=== PATIENT | female | born 2000 | race African-American/Black ===

== ENCOUNTER 2020-07-11 20:35 | Emergency (ER) | payer OTHER ==
[~2020-07-11] VITALS: Ht 157.5 cm; Wt 102.2 kg
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
[2020-07-11] MEDS ORDERED: TRAM-48 PO (21:48)
--- NOTE | 2020-07-11 21:55 | RAD ---
Exam: Right ankle 3 views INDICATION: Pain TECHNIQUE: Frontal, lateral and oblique views of the right ankle Comparisons: None FINDINGS: Bone mineralization is normal. Mild soft tissue swelling overlying the lateral malleolus. Joint spaces are well-maintained. No acute or healed fractures. IMPRESSION: Soft tissue swelling at the ankle without underlying osseous abnormality identified. Electronically signed by: Cindy Govea MD (07/11/2020 9:53 PM) [id number]
[2020-07-11 22:00] VITALS: BP 144/84
[2020-07-11] MEDS ORDERED: ACETAMINOPHEN 325 MG TABLET. PO ONE (22:00)
== END 2020-07-11 22:20 | disposition home or self-care (01) ==
LOC: ER 20:35
DX: S93.491A Sprain of other ligament of right ankle, initial encounter (principal); R60.0 Localized edema; V49.9XXA Car occupant (driver) (passenger) injured in unspecified traffic accident, initial encounter; Y93.89 Activity, other specified; Y92.413 State road as the place of occurrence of the external cause; Y99.8 Other external cause status
CPT/HCPCS: 73610; 99283

== ENCOUNTER 2021-10-11 10:15 | Emergency (ER) | payer OTHER ==
[~2021-10-11] VITALS: Ht 157.5 cm; Wt 111.7 kg
[~2021-10-11 10:15] MED LIST: TRAM-48 PO
[2021-10-11 10:19] VITALS: BP 140/72
--- NOTE | 2021-10-11 11:33 | ED.ADGEN ---
Past Medical History Past Medical History: No Pertinent History Past Surgical History: Tonsillectomy Smoking Status: Never Smoker Alcohol Use: None General Adult EDM: Chief Complaint: HAND PROBLEM HPI: HPI: Patient is a 20 year old female presents with right hand pain. 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 Is right-handed, no other injuries Review of Systems: Review of Systems: All other systems within normal limits except for as noted in the HPI Allergies: Allergies: Allergies Coded Allergies Type Severity Reaction Last Updated Verified No Known Drug Allergies 07/11/20 No Physical Exam: PE: Constitutional: Well developed, well nourished, no acute distress, non-toxic appearance. [] HENT: Normocephalic, atraumatic, bilateral external ears normal, nose normal. [] Eyes: PERRLA, conjunctiva normal, no discharge. [] Neck: No rigidity, supple, no stridor. [] Cardiovascular: Regular rate and rhythm, brisk cap refill [] Lungs & Thorax: Non labored symmetric respirations, no tachypnea or respiratory distress [] Abdomen: Soft, nondistended. Skin: Warm, dry, no erythema, no rash. Ecchymosis to lateral right hand] Back: Unremarkable Extremities: No deformities, range of motion grossly intact, no lower extremity edema. Neurovascularly intact on right hand [] Neurologic: Alert and oriented X 3, no focal deficits noted. [] Psychologic: Affect normal, judgement normal, mood normal. [] Current Patient Data: Vital Signs: Vital Signs Date Time Temp Pulse Resp B/P (MAP) Pulse Ox O2 Delivery O2 Flow Rate FiO2 10/11/21 10:19 98.4 85 16 140/72 (94) 97 Room Air 98.4 EKG: EKG: [] Heart Score: C/O Chest Pain: No Risk Factors: Risk Factors: DM, Current or recent (<one month) smoker, HTN, HLP, family history of CAD, obesity. Risk Scores: Score 0 - 3: 2.5% MACE over next 6 weeks - Discharge Home Score 4 - 6: 20.3% MACE over next 6 weeks - Admit for Clinical Observation Score 7 - 10: 72.7% MACE over next 6 weeks - Early Invasive Strategies Radiology/Procedures: Radiology/Procedures: Right hand x-ray negative [] Course & Med Decision Making: Course & Med Decision Making Pertinent Labs and Imaging studies reviewed. (See chart for details) [] Dragon Disclaimer: Dragon Disclaimer: This electronic medical record was generated, in whole or in part, using a voice recognition dictation system. Departure Departure Impression: Primary Impression: Injury of right hand Disposition: HOME / SELF CARE / HOMELESS Condition: STABLE Referrals: NO PCP (PCP) Patient Instructions: RICE - Routine Care for Injuries RANGEL TRISTAN MD Oct 11, 2021 11:33
--- NOTE | 2021-10-11 12:13 | RAD ---
EXAM: Right hand, 2 views. HISTORY: Fifth metacarpal pain. Blunt trauma. COMPARISON: None. FINDINGS: 2 views of the right hand are obtained. There is no acute fracture, dislocation or subluxat ion. There is no foreign body. IMPRESSION: No acute osseous finding. Electronically signed by: Denice Cabrera MD (10/11/2021 12:10 PM) [id number]
== END 2021-10-11 11:42 | disposition home or self-care (01) ==
LOC: ER 10:15
DX: S69.91XA Unspecified injury of right wrist, hand and finger(s), initial encounter (principal); W23.0XXA Caught, crushed, jammed, or pinched between moving objects, initial encounter; Y93.89 Activity, other specified; Y92.512 Supermarket, store or market as the place of occurrence of the external cause; Y99.0 Civilian activity done for income or pay
CPT/HCPCS: 73120; 99283

== ENCOUNTER 2021-10-17 18:29 | Emergency (ER) | payer SELFPAY ==
[~2021-10-17] VITALS: Ht 157.5 cm; Wt 113.0 kg
--- NOTE | 2021-10-17 21:20 | PHYS DOC ---
Past Medical History Past Medical History: No Pertinent History Past Surgical History: No Surgical History Smoking Status: Never Smoker Alcohol Use: None General Adult EDM: Chief Complaint: FLANK PAIN HPI: HPI: Patient is a 20-year-old female who presents to the emergency department for left flank pain that wraps around to her left upper abdomen that started today. She is reporting dysuria, urinary frequency/urgency, nausea. She denies vomiting, diarrhea, coughing, difficulty breathing, blood in her stools or vomit, fevers. Last bowel movement was yesterday. Patient has no medical history. Her vital signs are stable and she is in no acute distress. Review of Systems: Review of Systems: Constitutional: See HPI Respiratory: See HPI GI: See HPI : See HPI Musculoskeletal: See HPI Heart Score: C/O Chest Pain: N/A Risk Factors: Risk Factors: DM, Current or recent (<one month) smoker, HTN, HLP, family history of CAD, obesity. Risk Scores: Score 0 - 3: 2.5% MACE over next 6 weeks - Discharge Home Score 4 - 6: 20.3% MACE over next 6 weeks - Admit for Clinical Observation Score 7 - 10: 72.7% MACE over next 6 weeks - Early Invasive Strategies Allergies: Allergies: Allergies Coded Allergies Type Severity Reaction Last Updated Verified No Known Drug Allergies 10/17/21 No Physical Exam: PE: Constitutional: Well developed, well nourished, no acute distress, non-toxic appearance. [] HENT: Normocephalic, atraumatic, bilateral external ears normal, oropharynx moist, no oral exudates, nose normal. [] Eyes: PERRL, EOMI, conjunctiva normal, no discharge. [] Neck: Normal range of motion, no tenderness, supple, no stridor. [] Cardiovascular:Heart rate regular rhythm, no murmur [] Lungs & Thorax: Bilateral breath sounds clear to auscultation [] Abdomen: Bowel sounds normal, soft, left upper quadrant tenderness with palpation, no abdominal rigidity or guarding, no masses, no pulsatile masses. [] Skin: Warm, dry, no erythema, no rash. [] Back: No tenderness, left CVA tenderness Extremities: No tenderness, no cyanosis, no clubbing, ROM intact, no edema. [] Neurologic: Alert and oriented X 3, normal motor function, normal sensory function, no focal deficits noted. [] Psychologic: Affect normal, judgement normal, mood normal. [] Current Patient Data: Labs: Laboratory Tests Test 10/17/21 22:00 10/17/21 22:05 10/17/21 22:09 Urine Collection Type Unknown Urine Color Yellow Urine Clarity Cloudy Urine pH 6.0 Urine Specific [place] 1.020 Urine Protein Negative mg/dL Urine Glucose (UA) Negative mg/dL Urine Ketones (Stick) Negative mg/dL Urine Blood Large Urine Nitrite Negative Urine Bilirubin Negative Urine Urobilinogen Dipstick 0.2 mg/dL Urine Leukocyte Esterase Small Urine RBC 20-40 /HPF Urine WBC 5-10 /HPF Urine Squamous Epithelial Cells Mod /LPF Urine Bacteria Few /HPF Urine Mucus Marked /LPF Bedside Urine HCG, Qualitative Hcg negative White Blood Count 9.5 x10^3/uL Red Blood Count 4.73 x10^6/uL Hemoglobin 11.7 g/dL Hematocrit 34.8 % Mean Corpuscular Volume 74 fL Mean Corpuscular Hemoglobin 25 pg Mean Corpuscular Hemoglobin Concent 34 g/dL Red Cell Distribution Width 15.1 % Platelet Count 392 x10^3/uL Neutrophils (%) (Auto) 56 % Lymphocytes (%) (Auto) 34 % Monocytes (%) (Auto) 9 % Eosinophils (%) (Auto) 1 % Basophils (%) (Auto) 1 % Neutrophils # (Auto) 5.3 x10^3/uL Lymphocytes # (Auto) 3.2 x10^3/uL Monocytes # (Auto) 0.8 x10^3/uL Eosinophils # (Auto) 0.1 x10^3/uL Basophils # (Auto) 0.1 x10^3/uL Sodium Level 139 mmol/L Potassium Level 3.9 mmol/L Chloride Level 106 mmol/L Carbon Dioxide Level 24 mmol/L Anion Gap 9 Blood Urea Nitrogen 7 mg/dL Creatinine 0.9 mg/dL Estimated GFR (Cockcroft-Gault) 96.6 BUN/Creatinine Ratio 8 Glucose Level 79 mg/dL Calcium Level 8.8 mg/dL Total Bilirubin Pending Aspartate Amino Transf (AST/SGOT) Pending Alanine Aminotransferase (ALT/SGPT) Pending Alkaline Phosphatase Pending Total Protein Pending Albumin Pending Albumin/Globulin Ratio Pending Lipase Pending Current Medications Medications (Trade) Dose Ordered Sig/Kaycee Route PRN Reason Start Time Stop Time Status Last Admin Dose Admin Sodium Chloride 1,000 ml @ 1,000 mls/hr 1X ONCE IV 10/17/21 21:30 10/17/21 22:29 DC 10/17/21 22:07 Ondansetron HCl (Zofran) 4 mg 1X ONCE IVP 10/17/21 21:30 10/17/21 21:31 DC 10/17/21 22:08 Vital Signs: Vital Signs Date Time Temp Pulse Resp B/P (MAP) Pulse Ox O2 Delivery O2 Flow Rate FiO2 10/17/21 21:04 98.7 83 12 135/84 (101) 99 Room Air 98.7 EKG: EKG: [] Radiology/Procedures: Radiology/Procedures: []PROCEDURE: CT ABDOMEN PELVIS WO CONTRAST Exam: CT of abdomen and pelvis without contrast INDICATION: Flank pain TECHNIQUE: Sequential axial images through the abdomen and pelvis obtained without IV contrast. Sagittal and coronal reformatted images were reconstructed from the axial data and reviewed. Exposure: One or more of the following in the visualized dose reduction techniques were utilized for this examination: 1. Automated exposure control 2. Adjustment of the MA and/or KV according to patient size 3. Use of iterative of reconstructive technique Comparisons: None FINDINGS: Heart size is normal. No pericardial effusion. Visualized lung bases are clear. No pleural effusion. Evaluation solid organs is limited secondary to noncontrast technique. Liver, spleen, pancreas, and adrenals are unremarkable. Gallbladder is decompressed. No perinephric inflammation or hydronephrosis. No renal or ureteral calculi are identified. Bladder is partially distended and not well evaluated. Uterus is not enlarged. No abnormal adnexal mass. Large and small bowel are unremarkable. Appendix is normal. Small bowel is unremarkable. No free intra-abdominal air or fluid. No obstruction. Abdominal aorta has normal course and caliber. No enlarged abdominal lymph nodes are identified. No suspicious osseous lesions or acute fractures. IMPRESSION: No acute process identified within the abdomen or pelvis. No renal or ureteral calculi or evidence for obstructive uropathy. Electronically signed by: Max Farr MD (10/17/2021 10:50 PM) [facility] DICTATED and SIGNED BY: MAX FARR MD DATE: 10/17/21 [id number] 0 Course & Med Decision Making: Course & Med Decision Making Pertinent Labs and Imaging studies reviewed. (See chart for details) [] Patient presents to the emergency department for left flank pain that wraps around to her left upper abdomen with nausea, dysuria, urinary frequency and urgency. Patient not have any medical history. She does have a history of kidney stones. Work-up in the ER consisted of a urinalysis which showed a urinary tract infection. Blood work was unremarkable. CT scan of abdomen and pelvis showed no acute findings. Patient will be treated with an antibiotic. Patient advised to increase fluids and avoid bladder irritants. I discussed with patient all findings and diagnostic testing as well as the need to follow- up with PCP for further evaluation and treatment or return to the ER if any new or worsening symptoms. Strict return precautions were also discussed at length. Patient voiced understanding and agreement with the plan. Patient is hemodyna mically stable at the time of disposition. Dragon Disclaimer: Dragon Disclaimer: This electronic medical record was generated, in whole or in part, using a voice recognition dictation system. Departure Departure Impression: Primary Impression: Urinary tract infection Qualified Codes: N30.01 - Acute cystitis with hematuria Disposition: HOME / SELF CARE / HOMELESS Condition: GOOD Referrals: NO PCP (PCP) Patient Instructions: Urinary Tract Infection Additional Instructions: You were seen in the emergency department today for flank pain with nausea. Your urinalysis did show urinary tract infection which will be treated with an antibiotic. Please start and finish the antibiotic completely. For your burning pain you can take Pyridium. This medication may cause your urine to become orange in discoloration. Increase your fluids and avoid any bladder irritants like caffeine, sugary beverages or alcohol. You can take Tylenol and/ibuprofen for your pain. Follow-up with your primary care provider tomorrow regarding your ER visit. Please return to the emergency department if you develop intractable nausea or vomiting, high fevers refractory to treatment, abdominal pain. Scripts Phenazopyridine Hcl (PYRIDIUM) 200 Mg Tablet 1 TAB PO TID for urinary discomfort for 2 Days, #6 TAB 0 Refills Prov: LUCY SOLIS APRN 10/17/21 Cephalexin (KEFLEX) 500 Mg Capsule 1 CAP PO BID for 7 Days, #14 CAP 0 Refills Prov: LUCY SOLIS APRN 10/17/21 LUCY SOLIS APRN Oct 17, 2021 21:20
[2021-10-17] MEDS: IV NORMAL SALINE 1000ML BAG 1,000 ML IV ONE (22:07)
[2021-10-17] MEDS: ONDANSETRON PF 4 MG/2 ML VIAL. IVP ONE (22:08)
[2021-10-17 22:10] LABS: BILIRUBIN,URINE NEGATIVE (NEG); CLARITY,URINE CLOUDY; COLOR,URINE YELLOW; NITRITE,URINE NEGATIVE (NEG); PROTEIN,URINE NEGATIVE (NEG-TRACE); UROBILINOGEN,URINE 0.2 mg/dL (0.2 mg/dL)
[2021-10-17 22:17] LABS: BASO # 0.1 x10^3/uL (0.0-0.2); BASO % 1 % (0-3); EOS # 0.1 x10^3/uL (0.0-0.7); EOS % 1 % (0-3); HEMATOCRIT 34.8 % (36.0-47.0); HEMOGLOBIN 11.7 g/dL (12.0-15.5); LYMPH # 3.2 x10^3/uL (1.0-4.8); LYMPH % 34 % (24-48); MEAN CORPUSCULAR HEMOGLOBIN 25 pg (25-35); MEAN CORPUSCULAR HGB CONC 34 g/dL (31-37); MEAN CORPUSCULAR VOLUME 74 fL (79-100); MONO # 0.8 x10^3/uL (0.0-1.1); MONO % 9 % (0-9); NEUT # 5.3 x10^3/uL (1.8-7.7); NEUT % 56 % (31-73); PLATELET COUNT 392 x10^3/uL (140-400); RED BLOOD COUNT 4.73 x10^6/uL (3.50-5.40); RED CELL DISTRIBUTION WIDTH 15.1 % (11.5-14.5); WHITE BLOOD COUNT 9.5 x10^3/uL (4.0-11.0)
[2021-10-17 22:27] LABS: BACTERIA,URINE FEW /HPF (0-FEW); RBC,URINE 20-40 /HPF (0-2)
[2021-10-17 22:36] LABS: CALCIUM 8.8 mg/dL (8.5-10.1); CREATININE 0.9 mg/dL (0.6-1.0); GFR 96.6; POTASSIUM 3.9 mmol/L (3.5-5.1)
[2021-10-17 22:42] LABS: ALBUMIN 3.6 g/dL (3.4-5.0); ALBUMIN/GLOBULIN RATIO 0.9 (1.0-1.7); TOTAL BILIRUBIN 0.2 mg/dL (0.2-1.0); TOTAL PROTEIN 7.5 g/dL (6.4-8.2)
--- NOTE | 2021-10-17 22:52 | RAD ---
Exam: CT of abdomen and pelvis without contrast INDICATION: Flank pain TECHNIQUE: Sequential axial images through the abdomen and pelvis obtained without IV contrast. Sagit farhad and coronal reformatted images were reconstructed from the axial data and reviewed. Exposure: One or more of the following in the visualized dose reduction techniques were utilized for this examination: 1. Automated exposure control 2. Adjustment of the MA and/or KV according to patient size 3. Use of iterative of reconstructive technique Comparisons: None FINDINGS: Heart size is normal. No pericardial effusion. Visualized lung bases are clear. No pleural effusion. Evaluation solid organs is limited secondary to noncontrast technique. Liver, spleen, pancreas, and adrenals are unremarkable. Gallbladder is decompressed. No perinephric inflammation or hydronephrosis. No renal or ureteral calculi are identified. Bladder is partially distended and not well evaluated. Uterus is not enlarged. No abnormal adnexal ma ss. Large and small bowel are unremarkable. Appendix is normal. Small bowel is unremarkable. No free intr a-abdominal air or fluid. No obstruction. Abdominal aorta has normal course and caliber. No enlarged abdominal lymph nodes are identified. No suspicious osseous lesions or acute fractures. IMPRESSION: No acute process identified within the abdomen or pelvis. No renal or ureteral calculi or evidence fo r obstructive uropathy. Electronically signed by: Cindy Govea MD (10/17/2021 10:50 PM) [facility]
[2021-10-17] MEDS ORDERED: PHEN-318 PO (23:08)
[2021-10-17] MEDS ORDERED: CEPH500C PO (23:08)
[2021-10-17 23:37] VITALS: BP 115/56
== END 2021-10-17 23:37 | disposition home or self-care (01) ==
LOC: ER 18:29
DX: N30.01 Acute cystitis with hematuria (principal); Z87.442 Personal history of urinary calculi
CPT/HCPCS: 36415; 74176; 80053; 81001; 81025; 83690; 85025; 87086; 96361; 96374; 99285; J2405; J7030